=== PATIENT | female | born 1990 | race Caucasian/White ===

== ENCOUNTER 2017-07-24 01:41 | Emergency (ER) | payer OTHER ==
[~2017-07-24] VITALS: Ht 160 cm; Wt 59.0 kg
[2017-07-24 02:52] LABS: ABSOLUTE EOSINOPHILS 0.2 thou/uL (0.0-0.7); ABSOLUTE LYMPHOCYTES 1.5 thou/uL (0.8-5.3); ABSOLUTE MONOCYTES 0.5 thou/uL (0.0-1.2); ABSOLUTE NEUTROPHILS 4.4 thou/uL (1.6-8.1); BASOPHILS 0.3 %; EOSINOPHILS 3.3 %; HEMATOCRIT 39.3 % (37.0-47.0); HEMOGLOBIN 13.2 gm/dL (12.0-15.0); LYMPHOCYTES 22.8 %; MCH 29.1 pg (26.0-34.0); MCHC 33.5 g/dL (28.0-37.0); MCV 86.9 fL (80.0-100.0); MONOCYTES 7.6 %; MPV 9.2 fl. (7.2-11.1); NUCLEATED RBCS 0 /100WBC; PLATELET COUNT* 194 thou/uL (150-400); RBC 4.52 mil/uL (4.20-5.00); RDW-CV 12.8 % (10.5-14.5); WBC 6.6 thou/uL (4.0-11.0)
[2017-07-24 03:00] VITALS: BP 135/79
[2017-07-24 03:00] LABS: CALCIUM 9.1 mg/dL (8.5-10.1); CREATININE 0.8 mg/dL (0.6-1.3); POTASSIUM 3.8 mmol/L (3.5-5.1)
[2017-07-24 03:05] LABS: ALBUMIN 3.8 g/dL (3.4-5.0); TOTAL BILIRUBIN 0.2 mg/dL (<0.1-1.0); TOTAL PROTEIN 7.2 g/dL (6.4-8.2)
[2017-07-24] MEDS ORDERED: XANAX 0.25 MG0.25 MG PO (03:55)
--- NOTE | 2017-07-24 17:16 | EKG ---
[place] [address] ELECTROCARDIOGRAM REPORT Name: NEERAJPETEI Sharron Room: [facility]#: [id number] Admission: 07/24/17 Attend Phys: Discharge: 07/24/17 Date of : [birth year] Report #: [id number] THIS REPORT FOR: //name// [facility] ED Test Date: 2017-07-24 Test Time: 01:51:49 Pat Name: ANDRE PICKARD Department: Room: Gender: F Senior Electronics Technician: : 1990 Requested By: Sloane Jacques Order Number: [id number] MD: Fredrick Rosen Measurements Intervals [place] Rate: 94 P: 37 [place]: 164 QRS: 54 QRSD: 77 T: 48 QT: 346 QTc: 433 Interpretive Statements Sinus rhythm Baseline wander in lead(s) V5 No previous ECG available for comparison Electronically Signed On 07-24-2017 17:16:19 [employer]ILLER by Fredrick Rosen [email or web address] <ELECTRONICALLY SIGNED> By: Fredrick Rosen MD, [facility] 07/24/17 1716 0151 [id number] Fredrick Rosen MD, FACC /EPI
== END 2017-07-24 05:08 | disposition home or self-care (01) ==
LOC: M.ERS 01:41
PROVIDERS: Personal Emergency Response Attendant
DX: F41.9 Anxiety disorder, unspecified (principal); R09.1 Pleurisy; Z88.1 Allergy status to other antibiotic agents